=== PATIENT | female | born 1985 | race Caucasian/White ===

== ENCOUNTER 2024-10-20 22:56 | Observation (INO) | payer OTHER ==
[~2024-10-20] VITALS: Ht 172.7 cm; Wt 65.8 kg
[~2024-10-20 22:56] MED LIST: IBUHYD PO
[2024-10-21 00:23] LABS: BASOPHILS ABSOLUTE AUTO 0.06 K/mm3 (0.00-0.23); BASOPHILS PERCENT AUTO 1 % (0-2); EOSINOPHILS ABSOLUTE AUTO 0.08 K/mm3 (0.00-0.68); EOSINOPHILS PERCENT AUTO 1 % (0-6); Hematocrit 40.3 % (33.0-51.0); Hemoglobin 13.1 g/dL (11.5-16.0); IMMATURE GRAN ABSOLUTE AUTO 0.01 K/mm3 (0.00-0.10); IMMATURE GRAN PERCENT AUTO 0 % (0-1); LYMPHOCYTES ABSOLUTE AUTO 1.97 K/mm3 (0.84-5.20); LYMPHOCYTES PERCENT AUTO 28 % (21-46); MONOCYTES ABSOLUTE AUTO 0.52 K/mm3 (0.16-1.47); MONOCYTES PERCENT AUTO 8 % (4-13); Mean Corpuscular HGB 28.9 pg (26.0-34.0); Mean Corpuscular HGB Conc 32.5 g/dL (31.5-36.5); Mean Corpuscular Volume 89 fL (80-100); Mean Platelet Volume 9.7 fL (9.1-12.4); NEUTROPHILS ABSOLUTE AUTO 4.33 K/mm3 (1.96-9.15); NEUTROPHILS PERCENT AUTO 62 % (41-73); Platelet Count 215 K/mm3 (150-400); RDW Coefficient Variation 12.4 % (11.7-14.2); RDW Standard Deviation 40.9 fL (35.1-46.3); Red Blood Cell Count 4.54 M/mm3 (3.80-5.20); White Blood Cell Count 6.97 K/mm3 (4.00-11.30)
[2024-10-21 00:42] LABS: Ethanol (Alcohol), Blood, Med <3 mg/dL; Salicylate <1.7 mg/dL (2.8-20.0)
[2024-10-21 00:53] LABS: Alanine Aminotransfer (ALT/SGP 21 U/L (12-78); Albumin/Globulin Ratio 1.2 (0.8-1.8); Alk Phos 50 U/L (50-136); Anion Gap 7 mmol/L (3-11); Aspartate Aminotrans (AST/SGOT 17 U/L (12-37); Bilirubin, Total 0.4 mg/dL (0.1-1.0); Blood Urea Nitrogen 11 mg/dL (8-24); CO2, Blood 27 mmol/L (21-32); Calcium, Blood 8.4 mg/dL (8.5-10.1); Chloride, Blood 112 mmol/L (98-108); Creatinine, Blood 0.84 mg/dL (0.40-1.00); Globulin, Blood 3.4 g/dL (2.2-4.0); Glomerular Filtration Rate 91 (60-); Glucose, Blood 94 mg/dL (70-99); Potassium, Blood 3.7 mmol/L (3.5-5.5); Sodium, Blood 142 mmol/L (136-145); Total Protein, Blood 7.4 g/dL (6.4-8.2)
[2024-10-21 00:55] LABS: Acetaminophen, Random <2.0 ug/mL (10.0-30.0)
[2024-10-21 01:24] LABS: Source, Urine Clean Catch
[2024-10-21 01:35] LABS: Bilirubin, Urine Neg (Neg); Blood, Urine 5+ (Neg); Glucose Qualitative, Urine Neg (Neg); Ketones, Urine Neg (Neg); Leukocyte Esterase, Urine 1+ (Neg); Nitrite, Urine Neg (Neg); Protein, Urine 2+ (Neg); Urobilinogen, Urine NORM (Normal)
[2024-10-21 01:45] LABS: Appearance, Urine Hazy (Clear); Color, Urine Red (P-Yellow); U Amphetamine Screen Not Detected; U Barbituate Screen Not Detected; U Benzodiazapine Screen Not Detected; U Buprenorphine Screen Not Detected; U Cannabinoids Screen DETECTED; U Cocaine Screen Not Detected; U Methadone Screen Not Detected; U Methamphetamine Screen Not Detected; U Opiates Screen Not Detected; U Oxycodone Screen Not Detected; U Phencyclidine Screen Not Detected
[2024-10-21 01:46] LABS: Amorphous Mod (0-Heavy); Bacteria Few /hpf; Red Blood Cells, Urine TNTC /hpf (0-2); Squamous Epithelial Cells Few /hpf (Few)
[2024-10-21 08:28] LABS: CHOL/HDL RATIO 2.1; Cholesterol 159 mg/dL (50-200); HDL Cholesterol 75 mg/dL (>39); LDL/HDL RATIO 0.9; Low Density Lipoprotein Chol 70 mg/dL (0-110); Triglycerides 68 mg/dL (30-140); Very Low Density Lipoprot Chol 14 mg/dL (6-28)
[2024-10-21 12:36] VITALS: BP 137/94
== END 2024-10-21 12:12 | disposition other institution (70) ==
LOC: ER 22:56 → EOR 22:57
PROVIDERS: Student in an Organized Health Care Education/Training Program; ADMIT Student in an Organized Health Care Education/Training Program
DX: R45.851 Suicidal ideations (principal); Z90.49 Acquired absence of other specified parts of digestive tract
CPT/HCPCS: 80053; 80061; 80320; 81001; 81025; 82375; 84443; 85025; 86592; 93005; 93010; 99285-25; G0378; G0480

== ENCOUNTER 2024-10-21 10:00 | Inpatient (IN) | payer OTHER ==
[~2024-10-21] VITALS: Ht 172.7 cm; Wt 70.0 kg
[2024-10-21] MEDS ORDERED: DiphenhydrAMINE HCl 50 MG Cap PO PRN (12:30)
[2024-10-21] MEDS ORDERED: TraZODone HCl 50 MG Tab PO PRN (12:35)
[2024-10-21] MEDS ORDERED: Acetaminophen 325 MG TABLET PO PRN (12:35)
[2024-10-21] MEDS ORDERED: Ondansetron 4 MG SoluTab MM PRN (12:35)
[2024-10-21] MEDS ORDERED: OLANZapine ODT 10 MG Tab MM PRN (12:35)
[2024-10-21] MEDS ORDERED: DiphenhydrAMINE HCl 50 MG/ML 1ML Vial IV PRN (12:35)
[2024-10-21] MEDS ORDERED: Calcium Carbonate 500 MG Tab Chew PO PRN (12:35)
[2024-10-21] MEDS ORDERED: Polyethylene Glycol 3350 17 gm PO PRN (12:35)
[2024-10-21] MEDS ORDERED: Aluminum Hydroxide 320MG/5ML 473 ML PO PRN (12:35)
[2024-10-21] MEDS ORDERED: LORazepam 2 MG Tab PO PRN (12:40)
[2024-10-21] MEDS ORDERED: Melatonin 3 MG Tab PO PRN (12:40)
[2024-10-21] MEDS ORDERED: HydrOXYzine Pamoate 50 MG Cap PO PRN (12:40)
[2024-10-21] MEDS ORDERED: Haloperidol Lactate Inj. 5 MG/ML Injection IM PRN (12:40)
[2024-10-21] MEDS ORDERED: Ibuprofen 600 MG Tab PO PRN (12:40)
[2024-10-21] MEDS ORDERED: LORazepam 2 MG/ML 1ML Injection IM PRN (12:40)
[2024-10-21] MEDS ORDERED: Haloperidol 5 MG Tab PO PRN (12:45)
[2024-10-21] MEDS ORDERED: FLU VACC TS2024-25(6MOS UP)/PF 45 MCG/0.5 ML SYRINGE IM SCH (12:45)
--- NOTE | 2024-10-21 14:14 | NUR ---
ADMISSION SUMMARY PT ARRIVED TO UNIT [id number] FROM [facility] ER. SHE IS CLEAN AND NEAT IN APPEARNCE INSPITE OF BLUE PAPER SCURBS. SHE INITIALLY PRESENTS SHY AND WITHDRAWN. AFTER GOING OVER BELONGINGS, SHE WAS DRESSED DOWN AND SKIN CHECK PERFORMED BY MYSELF AND DAYSI COMER. PROVIDED PT WITH A COUPLE OF SNACKS DURING INTAKE HER BKFT AT ER WAS EGGS AND VOGT. SHE WON'T EAT PORK AND IS ALLERGIC TO EGGS. SHE MISSED THEIR LUNCH TIME. INTAKE WHILE IN THE CONSULT ROOM WAS FORTHCOMING. PT WAS VERY RELAXED BY THIS TIME AND WE HAD ESTABLISHED A QUICK RAPPORT. PT STS SHE FOUND OUT YESTERDAY THAT HER S/O HAS BEEN SEEING OTHER WOMEN. SHE MOVED HERE WITH HIM IN MAY FROM [facility]. 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 WORKING HERE BUT ABLE TO FIND WORK SHE WAS DOING BEFORE. SHE HASN'T LIVED WITH THE STATED S/O FOR AWHILE AND IS LIVING WITH HER COUSIN. SHE ALSO AND AN AUNT AND UNCLE IN THE AREA. PT STS SHE JUST DIDN'T KNOW WHAT TO DO, HAD A MOMENT OF DISPAIR AND SAT IN HER CAR WITH IT RUNNING FOR APPROX 15 MIN. SHE WAS CONTEMPLATING CLOSE THE GARAGE DOOR AND WAS JUST THE PROCESS OF DOING THIS WHEN HER COUSIN ARRIVED HOME. COUSIN CALLED POLICE, PT WAS BROUGHT TO ER FOR EVALUATION. PT DENIES EVER HAVING A MENTAL HEALTH HX OF ANY TYPE IN THE PAST. SHE VERY CLEARLY STATES SHE DOESN'T REALLY NEED TO BE HERE AND DOES NOT WANT TO TAKE ANY MEDICATIONS. PT WAS ESCORTED AROUND THE UNIT, SHOWN HER ROOM AND SET HER UP FOR A SHOWER. SHE IS CURRENTLY IN THE HALLWAY SOCIALIZING WITH OTHER PATIENTS.
--- NOTE | 2024-10-21 17:54 | NUR ---
SHIFT SUMMARY SINCE ADMISSION TODAY, PT TOOK A SHOWER, FEELS MUCH BETTER ABOUT THE MILIEU AND MUCH MORE COMFORTABLE. STS SHE WAS VERY "FREAKED" OUT AND THOUGHT SHE WAS GOING TO BE HERE FOR MONTHS, LIKE ASSISTED. SHE PARTICIPATED IN GROUP AND MEALS, SAT IN GROUP ROOM WITH OTHERS WATCHING TV. PT DENIES SI/HI/AVH AT THIS TIME, CONTINUED Q15 MIN VISUAL MONITORING TO ENSURE PT SAFETY
[2024-10-21 21:07] VITALS: BP 120/76
--- NOTE | 2024-10-22 04:34 | NUR ---
SHIFT SUMMARY PT PRESENT IN GROUP ROOM AT START OF SHIFT, WATCHING TV AND INTERACTIVE, LAUGHING AND JOKING WITH PEERS AND STAFF. PT DENIES ANY SI, HI OR HALLUCINATIONS. SHE COMPLAINED OF A HEADACHE, AND RECEIVED TYLENOL PER PRN ORDERS. PT REPORTED DIFFICULTY WITH SLEEPING, BUT STATED SHE DOESN'T LIKE TO TAKE MEDICATIONS. DISCUSSED PRN OPTIONS AND PT REQUESTED AND RECEIVED TRAZODONE. SHE HAS APPEARED TO BE SLEEPING THROUGHOUT THE NIGHT, WITH RESPIRATIONS CONFIRMED WITH Q15 MINUTE CHECKS PER UNIT PROTOCOL.
[2024-10-22 08:08] VITALS: BP 114/68
[2024-10-22] MEDS ORDERED: Multivitamins 1 Tab PO SCH (09:00)
--- NOTE | 2024-10-22 17:47 | NUR ---
SHIFT SUMMARY PT AxOx4. PLEASANT AND COOPERATIVE WITH CARE. PT DENIES SI/HI AND AVTH THIS SHIFT. PT STATES THE REASON FOR HER ADMISSION WAS DUE TO A "LAPSE IN JUDGEMENT AND A CRY FOR HELP." SHE DENIES FEELING DEPRESSED AT THIS TIME AND REPORTS REGRET FOR HER PREVIOUS SI. PT HAS BEEN FOLLOWING CARE PLAN THIS SHIFT INCLUDING ATTENDING [facility] THERAPY AND MINGLING APPROPRIATELY WITH STAFF/PEERS ON UNIT. PT IS FUTURE/GOAL MOTIVATED AND EAGER TO ESTABLISH WITH A THERAPIST UPON DISCHARGE. CURRENT PLAN IS FOR PT TO DC IN THE NEXT COUPLE DAYS. PT IS CURRENTLY SITTING IN DINING ROOM EATING DINNER. DENIES ANY NEEDS AT THIS TIME.
[2024-10-22 20:53] VITALS: BP 123/85
--- NOTE | 2024-10-23 03:17 | NUR ---
SHIFT SUMMARY PT IN GROUP ROOM AT START OF SHIFT. SHE INTERACTS WITH STAFF AND PEERS. SHE DENIES ANY SI, HI OR AVH. SHE STATES SHE IS FEELING MUCH BETTER. PT RECEIVED PRN MEDS TO ASSIST WITH SLEEPING. PT WENT TO BED AT AROUND 2130. AT APPROXIMATELY 0300 PT CAME TO NURSES STATION, STATING THAT SHE DID NOT NEED TO BE HERE. SHE WAS FEELING VERY ANXIOUS AFTER ANOTHER PT HAD AN OUTBURST OF YELLING AND SLAMMING DOORS. PT STATED SHE FEELS THOUGH SHE NEEDS TO STAY AWAKE TO BE READY TO DEFEND HERSELF. SHE STATES "I AM NOT SUICIDAL AND I NEED TO GET HOME TO MY KIDS. BEING HERE IS MAKING ME FEEL WORSE AND ANXIOUS AND I JUST NEED TO GO HOME AND GET SOME COUNSELING. I JUST NEED SOMEONE TO TALK TO." REASSURED THE PT THAT SHE WAS SAFE. OFFERED MEDICATION FOR ANXIETY BUT PT DECLINED. PT STATES SHE WILL DISCUSS GOING HOME TODAY WITH THE PROVIDER WHEN HE ROUNDS IN THE MORNING. PT RETURNED TO HER ROOM AND IS LAYING IN BED QUIETLY. Q15 MINUTE CHECKS TO CONTINUE PER UNIT PROTOCOL.
[2024-10-23 08:26] VITALS: BP 113/86
--- NOTE | 2024-10-23 16:52 | NUR ---
SHIFT ASSESSMENT: PT DENIED SI, HI AND AVH. SHE ENDORSED ANXIETY 1/10w AND HEADACHE/NECK PAIN OF 8/10w..."IT'S THE BED AND CAFFINE WITHDRAWL." HER AFFECT IS EUTHYMIC, SHE IS AN ACTIVE PARTICIPANT IN GROUPS AND THE PT MILIEU. SHE WAS MEDICATED WITH ADVIL 600MG AT 9:26 AND TYLENOL 650MG AT 12:00, ADVIL PROVIDED NO RELIEF, TYLENOL PROVIDED TOTAL RELIEF. PT REPORTS THAT "I DON'T NEED TO BE HERE...IT WAS A CRY FOR HELP. I NEED A GOOD COUNCELOR. I'M SCARED TO BE IN HERE...THAT ONE PT TURNS ON A DIME." PT WAS REASURED THAT STAFF'S GOALS ARE TO KEEP THE PT'S SAFE. PT'S COUSIN CAME IN TO VISIT WITH HER.
[2024-10-23 22:39] VITALS: BP 117/72
--- NOTE | 2024-10-24 04:42 | NUR ---
NOC SHIFT SUMMARY AVILA reported on day shift resolved with PRN Tylenol. No new concerns r/t mood. No suicidal ideation expressed. Less anxious in evening. Socializing and watching movie with peers until tv room closed for the night. No scheduled HS meds, but pt requested PRN trazodone for sleep. Informed pt that 2nd 50mg dose was available in 30 min if not effective. Pt did not realize this was an option and elected to try the 2nd dose tonight. Pt was noted to be sleeping overnight without issue.
[2024-10-24 07:54] VITALS: BP 112/71
--- NOTE | 2024-10-24 10:37 | NUR ---
PT A/O X4. DENIES SI, HI AND AVH. PT IS IN A GREAT AND POSITIVE MOOD. IS LOOKING FORWARD TO GOING HOME TODAY. SHE MISSES HER CHILDREN. PT DOES NOT WANT TO GO HOME ON ANY MEDICATIONS. SHE WANTS TO CONTINUE THERAPY. SHE SAID SHE JUST NEEDS SOMEONE TO TALK WITH. SHE INDICATED THAT HER BOYFRIEND IS PART OF HER PROBLEMS. HE LIES TO HER. SHE SAYS THAT SHE WILL BE ABLE TO HANDLE THINGS BETTER WHEN SHE GOES HOME. WILL CONTINUE TO ONITOR.
--- NOTE | 2024-10-24 11:41 | NUR ---
Pt Discharge Follow up Pt has requested [facility] for services and will be going into [facility] tomorrow at 8am for assessments and to be assigned to providers. Will update independent beauty consultant.
--- NOTE | 2024-10-24 12:44 | NUR ---
PT DISCHARGED AT 1242 FOR HOME. GIVEN DISCHARGE INSTRUCTONS, NO PRESRIPTIONS, EDUCATION, DECLINED OFFER OF NICOTINE CESSTATION COUSELING, BELONGINGS RETURNED, AND REFERRRAL TO FOLLOW UP WITH [facility]. PT A/O X4. PT AMBULATED OUT TO COUSIN BRIANNA'S CAR.
== END 2024-10-24 12:40 | disposition home or self-care (01) | DRG 885 ==
LOC: BHU 10:00
PROVIDERS: ADMIT Student in an Organized Health Care Education/Training Program
DX: F33.1 Major depressive disorder, recurrent, moderate (principal); R45.851 Suicidal ideations; Z60.2 Problems related to living alone
CPT/HCPCS: 36415; 83036; A9270

== ENCOUNTER → 2024-12-31 | Outpatient (CLI) | payer OTHER ==
[2025-01-09 10:52] LABS: HPV HIGH RISK BY TMA Not Detected; HPV SOURCE Cervical
== END | disposition home or self-care (01) ==
LOC: LAB 17:51 → LAB SHORT 17:51
DX: Z12.4 Encounter for screening for malignant neoplasm of cervix (principal)
CPT/HCPCS: 87624; 88142